=== PATIENT | female | born 1965 ===

== ENCOUNTER 2021-06-04 09:59 | Day surgery (SDC) | payer BC ==
[~2021-06-04 09:59] MED LIST: SODIUM CHLORIDE 0.9% 1000 ML 1,000 ML IV SCH
[2021-06-04] MEDS ORDERED: LIDOCAINE MPF (2%) 20 MG/1 ML VIAL 5 ML ONE (11:45)
[2021-06-04] MEDS ORDERED: propofoL 200 MG/20 ML VIAL IV ONE ×2 (11:45)
--- NOTE | 2021-06-04 11:51 | Anesthesia Day of Surgery ---
Anesthesia Day of Surgery - Day of Surgery Patient Examined: Yes Patient H&P Reviewed: Yes Patient is NPO: Yes
--- NOTE | 2021-06-04 11:51 | Anesthesia Consultation ---
Anesthesia Consult and Med Hx Date of service: 06/04/21 - Airway Anesthetic Teeth Evaluation: Good ROM Head & Neck: Adequate Mental/Hyoid Distance: Adequate Mallampati Class: Class II Intubation Access Assessment: Good - Pulmonary Exam CTA: Yes - Cardiac Exam Cardiac Exam: RRR - Pre-Operative Health Status ASA Pre-Surgery Classification: ASA2 Proposed Anesthetic Plan: MAC
--- NOTE | 2021-06-04 12:38 | Procedure Note ---
Date of procedure: 06/04/21 Pre-op diagnosis: H/O Melena/ Peptic Ulcer Disease/ colon Polyp Screening Post-op diagnosis: other (No evidence of Upper GI Bleeding noted/ No Peptic Ulcer Disease noted/ Mild to Moderate Erosive Esophagitis/ Gastritis/No evidence of Upper GI Bleeding/ Moderate, left Colon Diverticular Disease (possible source of GI Bleeding no Bleeding at present)/ No Colon Polyps/ Minor,Internal Hemorrhoids) Procedure: EGD with biopsy/ Colonoscopy Anesthesia: [facility] [place] Surgeon: DRE KRISHNAMURTHY Estimated blood loss: minimal Pathology: list Specimen disposition: to lab Condition: stable Disposition: same day (Treat with PPI and encourage fiber intake. Avoid aspirin and NSAID for 5 days; otherwise resume home medication and F/U in 1 to 2 weeks ([phone]).)
--- NOTE | 2021-06-04 12:51 | Operative Report ---
DATE OF SURGERY: 06/04/2021 PROCEDURE PERFORMED: EGD with biopsy. INDICATIONS: This is a 56-year-old female who on occasion has noticed some melena or what appeared like melena to her. Procedure was done to make sure there was not any associated peptic ulcer disease. DESCRIPTION OF PROCEDURE: Procedure was done after getting informed consent with MAC anesthesia. The instrument was passed through the hypopharynx into the esophagus, which showed [id number] distal erosive esophagitis. Biopsy was done from the distal esophagus to assess for the severity of the erosive esophagitis. Stomach showed gastritis. No ulcers were noted in the straight or the retroverted view. Biopsy was done from the gastric antrum, gastric body and angular incisura to rule out for H. pylori and atrophic gastritis, again with minimal bleeding. The pylorus was patent. The duodenum in the first and the second portion appeared normal. ASSESSMENT: History of melena, no evidence of any upper GI source of bleeding noted. No peptic ulcer disease noted. Mild to moderate erosive esophagitis, gastritis. PLAN: To treat the patient with PPI and to do a colonoscopy for further assessment. The patient is to have a colonoscopy done as part of colon polyp screening. The procedure was done at the GI lab with the assistance of the GI lab team, which included the GI nurse, the poultry service technician and with the assistance of anesthesia. TID: [id number] RECEIPT: [id number] TERESA
--- NOTE | 2021-06-04 13:16 | Operative Report ---
DATE OF SURGERY: 06/04/2021 PROCEDURE: Colonoscopy. INDICATIONS: This is a 56-year-old female who had an EGD done prior to the colonoscopy. She has a history of melena, but there was no evidence of any peptic ulcer disease or any evidence of upper GI bleeding noted. The patient was noted to have some [id number] erosive esophagitis, gastritis. Colonoscopy was done to assess for possible colon polyps. DESCRIPTION OF PROCEDURE: Procedure was done after getting informed consent with MAC anesthesia. Initial rectal examination was unremarkable. Instrument was passed through the rectum onto the cecum, which was identified with the ileocecal valve and the appendiceal orifice. The cecum was also evaluated on the retroverted view. No additional pathology was noted and the terminal ileum was intubated, showed normal mucosa. The scope was withdrawn to the hepatic flexure and reintroduced and again no additional pathology was seen. Cecum, ascending colon, transverse colon, descending colon, and sigmoid showed normal mucosa. There was moderate diverticular disease noted in the left colon involving the descending colon and the sigmoid and the rectum showed some minor internal hemorrhoid on the retroverted view. There was no bleeding associated with the procedure. No complications associated with the procedure. ASSESSMENT: Colon polyp screening, no colon polyps noted. Moderate left colon diverticula, minor internal hemorrhoid. Normal terminal ileal mucosa. It is possible that the patient's bleeding may have been secondary to a diverticular bleed and has resolved at the moment. The patient will be advised to take fiber supplements in addition to PPI because of the EGD findings of esophagitis and gastritis. She will be asked to avoid aspirin and aspirin-related products for the next 5 days, otherwise resume home medication and follow up in the office in 1-2 weeks' time. Procedure was done in the GI lab with assistance of the GI lab team, which included the GI nurse, endoscopy tech and with assistance of anesthesia. TID: [id number] RECEIPT: [id number] [place]
--- NOTE | 2021-06-04 16:31 | Post Anesthesia Evaluation ---
- Post Anesthesia Evaluation Patient Participated: Yes Airway Patent: Yes Stable Respiratory Function: Yes Nausea/Vomiting: No Temp > 96.8F: Yes Pain Manageable: Yes Adequeate Hydration: Yes Anesthesia Complications: No Block Receding Appropriately: Not Applicable Patient on Ventilator: No
[2021-06-04 18:51] VITALS: BP 136/75
== END 2021-06-04 13:30 | disposition home or self-care (01) ==
LOC: GIO 09:59
DX: K92.1 Melena (principal); R10.9 Unspecified abdominal pain; K57.30 Diverticulosis of large intestine without perforation or abscess without bleeding; K64.0 First degree hemorrhoids; K63.89 Other specified diseases of intestine; K21.00 Gastro-esophageal reflux disease with esophagitis, without bleeding; K29.50 Unspecified chronic gastritis without bleeding; K31.89 Other diseases of stomach and duodenum; B96.81 Helicobacter pylori [H. pylori] as the cause of diseases classified elsewhere; Z79.899 Other long term (current) drug therapy; Z98.890 Other specified postprocedural states
CPT/HCPCS: 43239; 45378; 88305; 88342; J2704; J7030